=== PATIENT | female | born 1940 | race Two or more races ===

== ENCOUNTER 2023-03-21 04:27 | Day surgery (SDC) | payer OTHER ==
[2023-03-18 14:48] VITALS: BMI 26.7
[2023-03-21 07:17] VITALS: TEMP 97.1
[2023-03-21 08:52] VITALS: BP 122/76; PULSE 57; RESP 18
== END 2023-03-21 09:50 | disposition home or self-care (01) ==
LOC: JASU-ENDO 04:27
PROVIDERS: ATTEND Internal Medicine Gastroenterology
PROC: 0DJD8ZZ Inspection of Lower Intestinal Tract, Via Natural or Artificial Opening Endoscopic (ICD-10-PCS; principal; 2023-03-21 08:00)
DX: Z12.11 Encounter for screening for malignant neoplasm of colon (principal); Z86.010 Personal history of colon polyps
CPT/HCPCS: 82962